=== PATIENT | male | born 1940 | race Caucasian/White ===

== ENCOUNTER 2020-11-14 21:14 | Inpatient (IN) | payer MEDICAID, SELFPAY ==
[~2020-11-14] VITALS: Ht 170.2 cm; Wt 73.5 kg
[2020-11-14 21:26] VITALS: BP 121/76
--- NOTE | 2020-11-14 21:29 | NUR ---
triaged and waiting in [facility] rig.
--- NOTE | 2020-11-14 21:32 | NUR ---
pt brought to bed 2.
--- NOTE | 2020-11-14 21:50 | NUR ---
PCR, JANNETTE swab collected via the SUBSTANCE ABUSE SERVICES DIRECTOR route.
--- NOTE | 2020-11-14 22:05 | NUR ---
EKG PERFORMED AT BEDSIDE. EKG READS SINUS RHYTHM @ 91
--- NOTE | 2020-11-14 22:08 | NUR ---
18g RT forearm IV initiated. pt tolerated well.
--- NOTE | 2020-11-14 22:10 | NUR ---
blood cultures collected and sent to lab.
[2020-11-14 22:34] LABS: APPEARANCE,URINE CLEAR (CLEAR); BILIRUBIN,URINE 1+ (NEGATIVE); BLOOD, URINE 1+ (NEGATIVE); COLOR,URINE DARK YELLOW (YELLOW); LEUKOCYTE ESTERASE ,URINE NEGATIVE (NEGATIVE); NITRITE, URINE NEGATIVE (NEGATIVE); UGLUCOSE NEGATIVE (NEGATIVE)
[2020-11-14 22:41] LABS: BASOPHILS % (AUTO) 0.3 % (0.0-2.0); EOSINOPHILS # (AUTO) 0.1 K/uL (0-0.4); EOSINOPHILS % (AUTO) 0.8 % (0.0-4.0); HEMATOCRIT 33.8 % (36-52); HEMOGLOBIN 11.1 g/dL (12.0-18.0); LYMPHOCYTES # (AUTO) 0.5 K/uL (2.0-11.5); LYMPHOCYTES % (AUTO) 7.5 % (20.5-51.1); MEAN CORPUSCULAR HEMOGLOBIN 29 pg (27-31); MEAN CORPUSCULAR HGB CONC 33 g/dL (33-37); MEAN CORPUSCULAR VOLUME 86.2 fL (80-94); MONOCYTES # (AUTO) 0.5 K/uL (0.8-1.0); MONOCYTES % (AUTO) 8.8 % (1.7-9.3); PLATELET COUNT (AUTO) 291 K/uL (140-450); RED BLOOD CELL COUNT(AUTO) 3.92 MIL/uL (4.20-6.10); RED CELL DISTRIBUTION WIDTH 14.6 % (11.6-13.7)
--- NOTE | 2020-11-14 22:58 | NUR ---
spoke with family member, Ulises Hopkins, states pt does not take any medications.
[2020-11-14 23:03] LABS: NEUTROPHILS % (AUTO) 82.6 % (42.2-75.2)
[2020-11-14 23:17] LABS: C-REACTIVE PROTEIN QUANT 34.5 mg/dL (0.0-0.9)
[2020-11-14 23:20] LABS: WBC,URINE 0-5 /HPF (0-5)
[2020-11-14 23:23] LABS: ALBUMIN 2.7 g/dL (3.4-5.0); ANION GAP 12.5 (8-16); ASPARTATE AMINOTRANSFERASE 37 U/L (15-37); CARBON DIOXIDE 30.2 mmol/L (21-32); CHLORIDE 100 mmol/L (98-107); CREATININE 0.8 mg/dL (0.6-1.3); GLUCOSE 99 mg/dL (74-106); POTASSIUM 3.7 mmol/L (3.5-5.1); SODIUM SERUM 139 mmol/L (136-145); TOTAL BILIRUBIN 0.5 mg/dL (0.0-1.0); UREA NITROGEN, BLOOD 21 mg/dL (7-18)
[2020-11-14 23:55] LABS: PROTHROMBIN TIME 10.4 secs (10.8-13.4)
[2020-11-15] MEDS ORDERED: hydrALAZINE 20 MG/ML VIAL IVP ONE (00:50)
--- NOTE | 2020-11-15 00:50 | NUR ---
pt requesting for medication to help with sleep. Dr. Carroll made aware.
--- NOTE | 2020-11-15 02:00 | NUR ---
RECIVED REPORT FROM LEANDRO HODGE FOR TRANSFER OF CARE. PT A&O X 4. RESPIRATIONS ARE EVEN AND UNLABORED ON 3L NC. O2SAT@ 93%. PT GIVEN URINAL AT BEDSIDE. IV SITE IS PATENT AND BLOOD RETURN NOTED. PT DENIES PAIN AT THIS TIME. BED IS LOCKED AND IN LOWEST POSITION.
[2020-11-15] MEDS ORDERED: DEXAMETHASONE 10 MG/ML VIAL IVP ONE (02:25)
[2020-11-15] MEDS ORDERED: AZITHROMYCIN 500 MG in DEXTROSE 5% 250 ML IV ONE (02:25)
[2020-11-15] MEDS ORDERED: cefTRIAXone 1,000 MG VIAL ONE ×2 (02:50→13:40)
[2020-11-15] MEDS ORDERED: AZITHROMYCIN 500 MG INJ VIAL IV ONE ×2 (02:51→08:58)
--- NOTE | 2020-11-15 04:16 | NUR ---
Patient appears to be resting comfortably in bed. Vital Signs within normal limits. Respirations even and unlabored.
--- NOTE | 2020-11-15 07:49 | NUR ---
Report received from NAVEEN Donaldson, transfered care at this time.
--- NOTE | 2020-11-15 07:56 | NUR ---
Pt repositioned in bed with 2 person assist, HOB elevated, urinal at pt bedside call light within reach.
[2020-11-15] MEDS ORDERED: AZITHROMYCIN 250 MG in DEXTROSE 5% 250 ML IV SCH (09:00)
--- NOTE | 2020-11-15 09:43 | NUR ---
Pt sleeping, visible equal rise and fall of chest, VSS, will continue to monitor. Bed locked in lowest position.
[2020-11-15] MEDS ORDERED: guaiFENesin DM 200/20 MG-10 ML 10 ML UDC PO PRN (11:50)
[2020-11-15] MEDS ORDERED: POTASSIUM CHLORIDE 40 MEQ, LIDOCAINE MPF 1% 25 MG in NACL 0.9% 250 ML IV PRN (11:50)
[2020-11-15] MEDS ORDERED: ONDANSETRON 4 MG/2 ML VIAL IM/IVP PRN (11:50)
[2020-11-15] MEDS ORDERED: DOCUSATE SODIUM 100 MG GELCAP PO PRN (11:50)
[2020-11-15] MEDS ORDERED: ACETAMINOPHEN 325 MG TAB PO PRN (11:50)
[2020-11-15] MEDS ORDERED: ALBUTEROL HFA MDI 90 MCG/ACTUATION 8 GM INH PRN (12:05)
[2020-11-15] MEDS: NACL 0.9% 1,000 ML IV SCH (12:46)
--- NOTE | 2020-11-15 12:52 | NUR ---
Provided lunch tray to patient, repositioned for comfort, VSS, will continue to monitor.
[2020-11-15] MEDS ORDERED: remdesivir COMMUNICATION ORDER 1 EA MISC MC PRN (14:15)
[2020-11-15] MEDS ORDERED: remdesivir CLINICAL MONITORING 1 EA MISC MC PRN (14:45)
[2020-11-15] MEDS: HYDROcodone/APAP 7.5/325 MG 1 TAB PO PRN (15:41)
--- NOTE | 2020-11-15 15:47 | NUR ---
Pt repositioned in bed, HOB adjusted for comfort, VSS, will continue to monitor.
[2020-11-15] MEDS ORDERED: REMDESIVIR (EUA) 200 MG in NACL 0.9% 100 ML IV SCH (16:00)
--- NOTE | 2020-11-15 18:14 | NUR ---
Pt provided dinner tray, HOB elevated, assisted with feeding.
[2020-11-15 18:40] LABS: CHOL/HDL RATIO 4.5 (1-4.5); FREE T4 (FREE THYROXINE) 1.73 ng/dL (0.76-1.46); MAGNESIUM 1.7 mg/dL (1.8-2.4); PHOSPHORUS 3.4 mg/dL (2.5-4.9); THYROID STIMULATING HORMONE 0.06 uIU/mL (0.34-3.74)
--- NOTE | 2020-11-15 19:32 | NUR ---
Gave report to NAVEEN Donaldson, transfered care at this time.
--- NOTE | 2020-11-15 19:33 | NUR ---
RECIVED REPORT FROM LACI HODEG. TRANSFER OF CARE.
[2020-11-15] MEDS: ZOLPIDEM 5 MG TAB PO PRN (21:54)
--- NOTE | 2020-11-15 21:54 | NUR ---
2100 MEDICATIONS GIVEN. PT REMAINS ON CARDIAC MONTIOR. PT ALERT AND ORIENTED X3. PATIENT GIVEN AMBIEN 5MG PRN FOR INSOMNIA. PT ABLE TO TOLERATE PO MEDICATIONS. PT DIAPER DRY. SKIN INTACT AND CLEAN. PT ASSITED IN USING URINAL AT BEDISDE. IV PATENT. IVF RUNNING ORDERED. PT DENIES PAIN AT THIS TIME VSS. BED LOCKED AND IN LOWEST POSITION.
--- NOTE | 2020-11-16 01:23 | NUR ---
PT RESTING IN BED EYES OPEN AND RESPONSIVE TO VERBAL STIMULI. PT A &O X 3. PT OFFERED MILK AND APPLE SAUCE. PATIENT ABLE TO SWALLOW WITHOUT DIFFICULTY. PT ASSITED WITH URINAL 100CC OF URINE DRAINED. PT DIAPER DRY. NO BM NOTED. SKIN INTACT, CLEAN, AND DRY. PATIENT DENIES PAIN AT THIS TIME. PT REMAINS ON CARDIAC MONTIOR. VSS. PT BED IS LOCKED AND IN LOWEST POSITION.
[2020-11-16] MEDS: NACL 0.9% 1,000 ML IV SCH ×2 (04:30→18:21)
--- NOTE | 2020-11-16 07:29 | NUR ---
REPORT GIVEN TO DARYN HODGE. TRANSFER OF CARE.
[2020-11-16 08:10] LABS: BASOPHILS % (AUTO) 0.3 % (0.0-2.0); EOSINOPHILS % (AUTO) 0.1 % (0.0-4.0); HEMATOCRIT 31.2 % (36-52); HEMOGLOBIN 10.5 g/dL (12.0-18.0); LYMPHOCYTES # (AUTO) 0.6 K/uL (2.0-11.5); LYMPHOCYTES % (AUTO) 7.1 % (20.5-51.1); MEAN CORPUSCULAR HEMOGLOBIN 29 pg (27-31); MEAN CORPUSCULAR HGB CONC 34 g/dL (33-37); MEAN CORPUSCULAR VOLUME 85.4 fL (80-94); MONOCYTES # (AUTO) 0.7 K/uL (0.8-1.0); MONOCYTES % (AUTO) 7.3 % (1.7-9.3); NEUTROPHILS # (AUTO) 7.6 K/uL (1.8-7.7); NEUTROPHILS % (AUTO) 85.2 % (42.2-75.2); PLATELET COUNT (AUTO) 313 K/uL (140-450); RED BLOOD CELL COUNT(AUTO) 3.65 MIL/uL (4.20-6.10); RED CELL DISTRIBUTION WIDTH 14.2 % (11.6-13.7); WHITE BLOOD COUNT (AUTO) 8.9 K/uL (4.8-10.8)
[2020-11-16 08:36] LABS: ANION GAP 10.3 (8-16); CARBON DIOXIDE 27.8 mmol/L (21-32); CHLORIDE 103 mmol/L (98-107); CREATININE 0.8 mg/dL (0.6-1.3); GLUCOSE 107 mg/dL (74-106); POTASSIUM 4.1 mmol/L (3.5-5.1); SODIUM SERUM 137 mmol/L (136-145); UREA NITROGEN, BLOOD 21 mg/dL (7-18)
[2020-11-16] MEDS ORDERED: COMMUNICATION ORDER MC SCH (09:00)
[2020-11-16] MEDS: PANTOPRAZOLE 40 MG TABEC PO SCH (09:28)
[2020-11-16] MEDS: ASCORBIC ACID 500 MG TAB PO SCH (09:28)
[2020-11-16] MEDS: ZINC SULF 220 MG CAP PO SCH (09:28)
--- NOTE | 2020-11-16 09:34 | NUR ---
PATIENT HAS BEEN SCREENED AND CATEGORIZED MODERATE NUTRITION RISK. PATIENT WILL BE SEEN WITHIN 3-5 DAYS OF ADMISSION. 11/17/20 11/19/[address]
--- NOTE | 2020-11-16 10:33 | NUR ---
PT RESTING WITH EYES CLOSED, BREATHING EVEN AND UNLABORED. NO DISTRESS NOTED.
--- NOTE | 2020-11-16 10:41 | NUR ---
CALLED BLOOD BANK, STATE THEY WILL GET BACK TO ME REGARDING CONVALESCENT BLOOD THAT IS ORDERED
--- NOTE | 2020-11-16 10:56 | NUR ---
PT COMPLAINS OF NAUSEA, GIVEN PRN FOR ZOFRAN
--- NOTE | 2020-11-16 12:30 | NUR ---
PT EATING LUNCH AT THIS TIME. ALL NEEDS MET
--- NOTE | 2020-11-16 12:47 | NUR ---
SOCIAL WORK NOTE: DANII WAS UNABLE TO MEET PATIENT AT BEDSIDE DUE TO MEDICAL CONDITION. DANII CONTACTED PATIETN'S EMERGENCY CONTACT WITH [facility] WENDY [id number]. DANII LEFT VM. Addendum: 11/18/20 at 1352 by Olegario Ga DANII CONTACTED PATIENT'S EMERGENCY CONTACT, DEB [place] - FRIEND/NEIGHBOR [phone]. PER DEB, SHE WILL PICK PATIENT UP AT 6:00PM. Addendum: 11/18/20 at 1356 by Olegario Ga DANII INFORMED NAVEEN LOMBARDI HE VERBALIZED UNDERSTANDING.
--- NOTE | 2020-11-16 14:30 | NUR ---
PT RESTING WITH EYES CLOSED, BREATHING EVEN AND UNLABORED. NO DISTRESS NOTED.
--- NOTE | 2020-11-16 15:13 | NUR ---
Patient will be admitted to care of Dr Yi. Admited to tele. Will go to room 114. Belongings list completed. Report to Shy HODGE.
--- NOTE | 2020-11-16 15:13 | NUR ---
Note pavithra in ED - 11[facility]16[facility] will be admitted to care of Dr Yi. Admited to tele. Will go to room 114. Belongings list completed. Report to Shy HODGE.
--- NOTE | 2020-11-16 15:19 | NUR ---
PT TAKENN TO FLOOR AT THIS TIME
--- NOTE | 2020-11-16 15:22 | NUR ---
Patient will be admitted to care of Dr Yi. Admited to tele. Will go to room 114. Belongings list completed. Report to Shy HODGE.
--- NOTE | 2020-11-16 16:34 | NUR ---
DISCHARGE PLANNING: THIS IS A 79 Y/O MALE PATIENT FROM HOME, WHO WAS BIBA DUE TO WORSENING BODY ACHE, CHILLS AND ALTERED MENTAL STATUS. PAST MEDICAL HISTORY INCLUDE HTN, HYPERLIPIDEMIA AND PARKINSON. INITIAL DIAGNOSIS OF COVID, PNEUMONIA, HYPOXIA. RAPID COVID TEST POSITIVE, PCR PENDING. ON ROOM AIR, O2 SAT 98%. ON REMDESIVIR, DECADRON. SEEN BY PULMO - CONTINUE SUPPLEMENTAL O2, BREATHING TREATMENT, DECADRON, DVT PROPHYLAXIS. DC PLAN PENDING ON PATIENT'S RESPONSE TO TREATMENT.
[2020-11-16] MEDS: REMDESIVIR (EUA) 100 MG in NACL 0.9% 100 ML IV SCH (17:00)
[2020-11-16 18:39] VITALS: BP 122/68
--- NOTE | 2020-11-16 19:07 | NUR ---
PATIENT RESTING COMFORTABLY, NO C/O PAIN OR DISCOMFORT. RESPIRATIONS ARE NON-LABORED. SKIN IS CLEAN WARM AND DRY TO TOUCH. IV ACCESS IS PATENT, DRY AND INTACT. BED IS LOCKED IN LOWEST POSITION, CALL LIGHT IN REACH. PATIENT ENDORSED TO VULCANIZING PRESS OPERATOR NURSE.
--- NOTE | 2020-11-16 19:10 | NUR ---
RECEIVED PT AWAKE ON HIGH FOWLERS POSITION, AAOX3, ABLE TO MAKE NEEDS KNOWN, NO RESP DISTRESS, ON O2 AT 2L VIA NC, REMDESIVIR IVPB INFUSING AT THIS TIME, MAINTAIN ON DROPLET PRECAUTION FOR COVID POSITIVE, SAFETY MEASURES IN PLACE, CALL LIGHT WITHIN REACH.
[2020-11-16 20:00] VITALS: BP 163/69
[2020-11-16] MEDS: HYDROcodone/APAP 7.5/325 MG 1 TAB PO PRN (20:20)
[2020-11-16] MEDS: ZOLPIDEM 5 MG TAB PO PRN (20:29)
--- NOTE | 2020-11-16 20:30 | NUR ---
MEDICATED PRN FOR GENERALIZED PAIN WITH NORCO AND AMBIEN FOR INSOMNIA, ALL NEEDS ATTENDED.
[2020-11-17] VITALS: BP 169/79
[2020-11-17] MEDS ORDERED: FLU VACCINE QS2020-21 0.5 ML SYR IMVAC PRN (02:05)
[2020-11-17] MEDS ORDERED: PNEUMOCOCCAL VACCINE 23 MCG/0.5 ML VIAL IMVAC PRN (02:05)
--- NOTE | 2020-11-17 02:11 | NUR ---
PT AWAKE REQUESTING FOR SNACK, SANDWICH PROVIDED, PT MADE AWARE THAT THERE IS AN ORDER FOR PLASMA CONVALESCENT, PT IS AMENABLE AND GAVE VERBAL CONSENT TO RECEIVE IT, MONITORED CLOSELY.
[2020-11-17 05:15] VITALS: BP 164/74
--- NOTE | 2020-11-17 05:50 | NUR ---
SEEN PT SLEEPING WITH BLANKET OVER HIS HEAD, VISIBLE CHEST RISE AND FALL, IVF INFUSING WELL, MONITORED CLOSELY.
--- NOTE | 2020-11-17 07:25 | NUR ---
PT AWAKE, NO RESP DISTRESS NOTED, REPORT GIVEN TO RN MONISHA FOR CONTINUITY OF CARE.
--- NOTE | 2020-11-17 07:41 | NUR ---
RECEIVED PATIENT IN BED RESTING COMFORTABLY, PATIENT PRESENTS CALM AND COOPERATIVE. NO S/SX OF PAIN OR DISCOMFORT OBSERVED NOR REPORTED. RESPIRATIONS ARE NON-LABORED. SKIN IS CLEAN, WARM AND DRY TO TOUCH. IV ACCESS IS PATENT. BED IS LOCKED IN LOWEST POSITION, CALL LIGHT IN REACH. NURSE WILL CONTINUE TO MONITOR FOR CHANGES IN STATUS.
[2020-11-17 08:07] LABS: T4 (THYROXINE) 8.3 ug/dL (4.5-12.0)
[2020-11-17 08:39] LABS: BASOPHILS % (AUTO) 0.4 % (0.0-2.0); HEMATOCRIT 29.1 % (36-52); HEMOGLOBIN 9.9 g/dL (12.0-18.0); LYMPHOCYTES # (AUTO) 0.5 K/uL (2.0-11.5); LYMPHOCYTES % (AUTO) 6.8 % (20.5-51.1); MEAN CORPUSCULAR HEMOGLOBIN 29 pg (27-31); MEAN CORPUSCULAR HGB CONC 34 g/dL (33-37); MEAN CORPUSCULAR VOLUME 85.2 fL (80-94); MONOCYTES # (AUTO) 0.6 K/uL (0.8-1.0); MONOCYTES % (AUTO) 7.8 % (1.7-9.3); NEUTROPHILS # (AUTO) 6.2 K/uL (1.8-7.7); PLATELET COUNT (AUTO) 316 K/uL (140-450); RED BLOOD CELL COUNT(AUTO) 3.41 MIL/uL (4.20-6.10); RED CELL DISTRIBUTION WIDTH 14.2 % (11.6-13.7); WHITE BLOOD COUNT (AUTO) 7.2 K/uL (4.8-10.8)
[2020-11-17 08:47] LABS: ANION GAP 9.3 (8-16); ASPARTATE AMINOTRANSFERASE 41 U/L (15-37); CARBON DIOXIDE 28.2 mmol/L (21-32); CHLORIDE 105 mmol/L (98-107); CREATININE 0.8 mg/dL (0.6-1.3); GLUCOSE 138 mg/dL (74-106); POTASSIUM 4.5 mmol/L (3.5-5.1); SODIUM SERUM 138 mmol/L (136-145); TOTAL BILIRUBIN 0.2 mg/dL (0.0-1.0); UREA NITROGEN, BLOOD 25 mg/dL (7-18)
[2020-11-17] MEDS: ASCORBIC ACID 500 MG TAB PO SCH (08:56)
[2020-11-17] MEDS: PANTOPRAZOLE 40 MG TABEC PO SCH (08:57)
[2020-11-17] MEDS: ZINC SULF 220 MG CAP PO SCH (08:58)
[2020-11-17] MEDS ORDERED: BENZ-196 PO (11:53)
[2020-11-17] MEDS ORDERED: DEC1 PO (11:53)
[2020-11-17] MEDS ORDERED: ALBU0.0912 IH (11:53)
[2020-11-17] MEDS ORDERED: AZIT250T3 PO (11:53)
[2020-11-17] MEDS ORDERED: APIX2.5 PO (11:54)
--- NOTE | 2020-11-17 12:12 | NUR ---
PATIENT RESTING COMFORTABLY, NO S/SX OF PAIN OR DISCOMFORT, RESPIRATIONS ARE NON-LABORED. SKIN IS CLEAN, WARM AND DRY TO TOUCH. IV ACCESS IS PATENT, DRY AND INTACT, BED IS LOCKED IN LOWEST POSITION, CALL LIGHT IN REACH. NURSE WILL CONTINUE TO MONITOR FOR CHANGES IN STATUS.
[2020-11-17] MEDS: HYDROcodone/APAP 7.5/325 MG 1 TAB PO PRN ×2 (12:50→22:45)
--- NOTE | 2020-11-17 16:34 | NUR ---
Patient resting comfortably, no S/sx of pain or discomfort. Respirations are non-labored. Skin is clean, warm and dry. Iv access is patent, dry and intact. Bed is locked in lowest position, call light in reach. nurse will continue to monitor for changes in status.
[2020-11-17] MEDS: REMDESIVIR (EUA) 100 MG in NACL 0.9% 100 ML IV SCH (17:14)
[2020-11-17 17:40] VITALS: BP 150/98
[2020-11-17 20:00] VITALS: BP 134/83
--- NOTE | 2020-11-17 22:15 | NUR ---
RECEIVED PT FROM [employer]. REPORT WAS NOT GIVEN FROM DAY SHIFT NURSE. PT IS AWAKE AND LAYING IN SEMI FOWLERS POSITION. NO RESPIRATORY DISTRESS NOTED. ON OXYGEN VIA NC. PT STATES HE HAS PAIN AND NEEDS SOMETHING TO SLEEP BECAUSE HE HASN'T BEEN ABLE TO SLEEP TODAY. WILL ADMINISTER PAIN MED AND MED FOR SLEEP.
[2020-11-17] MEDS: ZOLPIDEM 5 MG TAB PO PRN (22:45)
[2020-11-17] MEDS: NACL 0.9% 1,000 ML IV SCH (22:57)
--- NOTE | 2020-11-17 23:30 | NUR ---
CALLED [facility] TO [place] FOR [employer]IVATE SE[employer] EXECUTIVE. DAY SHIFT RN SAID THAT THEY WOULD BE BACK TO PRIVATE SECTOR EXECUTIVE PATIENT ONCE THE COVID RESULTS CAME BACK. VOICEMAIL BOX IS NOT SET UP FOR PHONE NUMBER CALLED. WAS UNABLE TO LEAVE A MESSAGE. WILL CALL BACK IN THE AM TO SET UP TIME TO TRANSPORT PT.
--- NOTE | 2020-11-17 23:42 | NUR ---
PT IS STABLE. FLUIDS ARE INFUSING. PT IS STABLE. BREATHING IS UNLABORED. BED IS IN THE LOWEST POSITION.
[2020-11-18] VITALS: BP 144/77
[2020-11-18] MEDS: NACL 0.9% 1,000 ML IV SCH (01:14)
--- NOTE | 2020-11-18 01:30 | NUR ---
MADE ROUNDS ON PT. HE IS AWAKE AND TALKATIVE. A&OX4. ON 2L O2 NC WITH BREATHING UNLABORED. PT IS STABLE. HE WAS GIVEN SNACKS AND JUICE REQUESTED. NEEDS HAVE BEEN MET.
--- NOTE | 2020-11-18 03:27 | NUR ---
PT IS SLEEPING. CHEST RISE AND FALL SYMMETRICAL. PT IS STABLE AT THIS TIME. WILL CONTINUE TO MONITOR.
--- NOTE | 2020-11-18 05:30 | NUR ---
ROUNDED ON PT. HE IS AWAKE AND TALKING APPROPRIATELY. A&OX4. BREATHING UNLABORED ON 2L O2 NC. IV FLUIDS ARE PATENT AND INFUSING. PT IS STABLE.
--- NOTE | 2020-11-18 06:27 | NUR ---
INFORMED PT THAT HE WILL BE DISCHARGING TODAY. ORDERS WERE PLACED BY THE DOCTOR YESTERDAY AND DISCHARGE PAPERWORK WAS SIGNED BY NURSE AND PT. PT STATED THAT HE DOES NOT HAVE A HOME TO GO TO HE IS HOMELESS. PT STATES HE USED TO RENT A ROOM IN A HOUSE BUT NO LONGER IS RENTING THE ROOM. HE SAYS [place]IVES [place]." WILL ENDORSE TO DAY SHIFT NURSE TO FOLLOW UP WITH DICE PERSON.
--- NOTE | 2020-11-18 06:30 | NUR ---
CALLED PHONE NUMBER IN CHART TO GET A BETTER UNDERSTANDING OF THE LIVING SITUATION WITH THE CONSENT OF THE PT. LEFT A VOICEMAIL AND WILL WAIT FOR A CALL BACK.
[2020-11-18 06:35] VITALS: BP 158/71
--- NOTE | 2020-11-18 07:30 | NUR ---
ENDORSED PT TO DAY SHIFT NURSE FOR CONTINUITY OF CARE. PT IS STABLE AT THIS TIME. PLAN OF CARE DISCUSSED.
--- NOTE | 2020-11-18 07:35 | NUR ---
RECEIVED BEDSIDE REPORT FROM [employer] ARCHITECT CONSULTANT NURSE. PT IS AWAKE AND LAYING IN SEMI FOWLERS POSITION. AOX3. RESPIRATION EVEN AND UNLABORED. NO RESPIRATORY DISTRESS NOTED. ON 2L OXYGEN VIA NC SATING AT 92%. SKIN IS WARM AND DRY. DENIES PAIN. RFA 20 G RUNNING NS @60 ML/HR. IV IS INTACT AND PATENT. PLAN OF CARE WAS DISCUSSED. SAFETY PRECAUTIONS IN PLACE. BED IN LOW POSITION AND CALL LIGHT WITHIN REACH. WILL CONTINUE TO MONITOR.
[2020-11-18 08:00] VITALS: BP 137/60
[2020-11-18] MEDS: ZINC SULF 220 MG CAP PO SCH (08:34)
[2020-11-18] MEDS: PANTOPRAZOLE 40 MG TABEC PO SCH (08:34)
[2020-11-18] MEDS: ASCORBIC ACID 500 MG TAB PO SCH (08:34)
--- NOTE | 2020-11-18 08:35 | NUR ---
ALL SCHEDULED MEDS GIVEN. PT IS STABLE. NO DISTRESS NOTED. WILL CONTINUE TO MONITOR.
[2020-11-18 08:37] LABS: BASOPHILS % (AUTO) 0.5 % (0.0-2.0); EOSINOPHILS % (AUTO) 0.2 % (0.0-4.0); HEMOGLOBIN 11.2 g/dL (12.0-18.0); LYMPHOCYTES # (AUTO) 0.6 K/uL (2.0-11.5); LYMPHOCYTES % (AUTO) 7.5 % (20.5-51.1); MEAN CORPUSCULAR HEMOGLOBIN 29 pg (27-31); MEAN CORPUSCULAR HGB CONC 34 g/dL (33-37); MEAN CORPUSCULAR VOLUME 84.5 fL (80-94); MONOCYTES # (AUTO) 0.6 K/uL (0.8-1.0); MONOCYTES % (AUTO) 7.5 % (1.7-9.3); NEUTROPHILS # (AUTO) 7.2 K/uL (1.8-7.7); NEUTROPHILS % (AUTO) 84.3 % (42.2-75.2); PLATELET COUNT (AUTO) 381 K/uL (140-450); RED CELL DISTRIBUTION WIDTH 14.3 % (11.6-13.7); WHITE BLOOD COUNT (AUTO) 8.5 K/uL (4.8-10.8)
[2020-11-18 09:14] LABS: ALBUMIN 2.3 g/dL (3.4-5.0); ANION GAP 11.7 (8-16); ASPARTATE AMINOTRANSFERASE 39 U/L (15-37); CARBON DIOXIDE 29.6 mmol/L (21-32); CHLORIDE 100 mmol/L (98-107); CREATININE 0.8 mg/dL (0.6-1.3); GLUCOSE 105 mg/dL (74-106); POTASSIUM 4.3 mmol/L (3.5-5.1); SODIUM SERUM 137 mmol/L (136-145); TOTAL BILIRUBIN 0.3 mg/dL (0.0-1.0); UREA NITROGEN, BLOOD 21 mg/dL (7-18)
--- NOTE | 2020-11-18 11:50 | NUR ---
CHECKED ON PATIENT. PATIENT IS ASLEEP IN BED. RESPIRATIONS EVEN AND UNLABORED. NO RESPIRATORY DISTRESS NOTED. WILL CONTINUE TO MONITOR.
[2020-11-18 12:00] VITALS: BP 157/66
--- NOTE | 2020-11-18 12:15 | NUR ---
PATIENT REQUESTED A CHANGE OF PADS. KEPT PATIENT CLEAN AND DRY. NO PAIN OR DISTRESS NOTED. WILL CONTINUE TO MONITOR.
--- NOTE | 2020-11-18 13:52 | NUR ---
11/18/20 RD INITIAL ASSESSMENT COMPLETED PLEASE REFER TO NUTRITION ASSESSMENT UNDER CARE ACTIVITY FOR ESTIMATED NUTRITIONAL NEEDS. 1. CONTINUE MECHANICAL SOFT CCHO 60GM DIET TOLERATED 2. CONTINUE GLUCERNA BID 3. ENCOURAGE PO INTAKE >75% 4. RD TO FOLLOW-UP 3-5 DAYS, MODERATE RISK GEOVANI SEBASTIAN, RD
--- NOTE | 2020-11-18 13:55 | NUR ---
[employer] PRES[employer]ICATION[employer] ANKUR CALLED. HE SAID THAT PATIENT IS GOING TO BE PICKED UP BY HIS NEIGHBOR AT 1800.
--- NOTE | 2020-11-18 14:30 | NUR ---
PATIENT REQUESTED A CHANGE OF PADS. KEPT PATIENT CLEAN AND DRY. NO PAIN OR DISTRESS NOTED. WILL CONTINUE TO MONITOR.
[2020-11-18 15:43] VITALS: BP 157/66
[2020-11-18 16:00] VITALS: BP 173/74
[2020-11-18] MEDS ORDERED: PNEUMOCOCCAL VACCINE 23 MCG/0.5 ML VIAL IMVAC SCH (16:10)
[2020-11-18] MEDS ORDERED: FLU VACCINE QS2020-21 0.5 ML SYR IMVAC PRN (16:10)
[2020-11-18] MEDS: REMDESIVIR (EUA) 100 MG in NACL 0.9% 100 ML IV SCH (16:40)
--- NOTE | 2020-11-18 18:18 | NUR ---
PATIENT REQUESTED FLU AND PNA VACCINE. ADMINISTERED BOTH MEDICATIONS PER ORDERED. PT IS STABLE. NO DISTRESS NOTED. AWAITING PATIENT TO BE DISCHARGED. WILL CONTINUE TO MONITOR
--- NOTE | 2020-11-18 18:45 | NUR ---
CALLED DEB SHE SAID SHE'S THE NEIGHBOR OF THE PATIENT AND THE PLACE WHERE THE PATIENT LIVES IS NOT OPENING THE DOOR PER DEB, SHE SAID SHE WILL TRY AGAIN AND SHE WILL CALL. WILL FOLLOW UP AND ENDORSE TO THE NEXT SHIFT.
--- NOTE | 2020-11-18 19:33 | NUR ---
ENDORSED TO NURSE FOR CONTINUITY OF CARE.
--- NOTE | 2020-11-18 19:35 | NUR ---
RECEIVED PT IN STABLE CONDITION FROM AM NURSE. AWAKE,ALERT AND ORIENTED X4. TELE PT. DROPLET ISOLATION FOR COVID 19. NO SOB NOTED. WITH O2 2/NC. IVF INFUSING WELL ON RT FA G#20. FOR DC HOME TONIGHT. WAITING FOR SACK REPAIRER. . FREQ ROUNDS NEEDED. BED ON LOW POSITION. SIDE RAILS UPX2. CALL LIGHT AND URINAL PLACED WITHIN REACH. WILL CONTINUE TO MONITOR.
--- NOTE | 2020-11-18 20:00 | NUR ---
PT ALL WET. CLEANED AND KEPT DRY. DIAPER IN PLACED. CHANGED ALSO WITH OWN L/S SHIRT FOR PT IS FOR DC HOME. IV ACCESS AND ID BANDS REMOVED.
--- NOTE | 2020-11-18 20:25 | NUR ---
DISCHARGE HOME WITH ALL DC PAPERS WITH PATIENT. ALSO PERSONAL BELONGINGS BROUGHT HOME WITH PT. DC WITH WHEELCHAIR ACCOMPANIED BY ROMIE CASILLAS TO PRIVATE CAR BY NEIGHBOR.
--- NOTE | 2020-11-18 22:56 | NUR ---
CRITICAL LAB VALUE -- COVID +. SENT TO INFECTION CONTROL
== END 2020-11-18 20:25 | disposition home or self-care (01) | DRG 137 ==
LOC: MED 21:14 → MTU 11-15 03:10
PROVIDERS: ADMIT Family Medicine; ATTEND Family Medicine
PROC: 3E0234Z Introduction of Serum, Toxoid and Vaccine into Muscle, Percutaneous Approach (ICD-10-PCS; principal; 2020-11-18)
PROC: XW033E5 Introduction of Remdesivir Anti-infective into Peripheral Vein, Percutaneous Approach, New Technology Group 5 (ICD-10-PCS; 2020-11-18)
DX: U07.1 COVID-19 (principal); E43 Unspecified severe protein-calorie malnutrition; J12.89 Other viral pneumonia; J96.01 Acute respiratory failure with hypoxia; D68.59 Other primary thrombophilia; E86.0 Dehydration; D64.9 Anemia, unspecified; E78.5 Hyperlipidemia, unspecified; G20 Parkinson's disease; I10 Essential (primary) hypertension; Z23 Encounter for immunization; Z68.25 Body mass index [BMI] 25.0-25.9, adult
CPT/HCPCS: 36415; 71045; 80048; 80053; 81001; 82150; 82550; 82728; 83036; 83605; 83615; 83690; 83735; 83880; 84100; 84436; 84439; 84443; 84479; 84484; 85025; 85379; 85384; 85610; 85651; 85730; 86140; 86900; 86901; 87040; 87081; 87086; 90732; 93005; 96365; 96375; 99291; J0360; J0456; J0696; J1100; J1644; J2405; J7060; U0003